=== PATIENT | female | born 1945 | race Caucasian/White ===

== ENCOUNTER → 2016-04-07 | Outpatient (CLI) | payer MEDICARE, OTHER ==
[2016-04-07 13:10] LABS: BASOPHIL # 0.1 K/uL (0.0-0.2); BASOPHIL % 1.2 %; EOSINOPHIL # 0.2 K/uL (0.0-0.5); EOSINOPHIL % 2.6 %; HEMATOCRIT 37.5 % (33.0-46.0); HEMOGLOBIN 12.1 g/dL (10.0-15.0); IMMATURE GRANULOCYTE % 0.3 %; LYMPHOCYTE # 0.9 K/uL (0.8-4.0); LYMPHOCYTE % 15.5 %; MCH 29.1 pg (27.0-34.0); MCHC 32.3 gm/dL (32.0-36.5); MCV 90.1 fl (83.0-98.0); MONOCYTE # 0.3 K/uL (0.0-1.0); MONOCYTE % 5.6 %; MPV 10.6 fl (9.4-12.4); NEUTROPHIL # (ANC) 4.3 K/uL (1.8-7.8); NEUTROPHIL % 74.8 %; NRBC % 0 /100WBC (0-0.00); PLATELET COUNT 345 K/uL (150-450); RBC 4.16 M/uL (3.50-5.50); RDW-CV 15.1 % (11.9-14.6); WBC 5.8 K/uL (4.0-11.0)
[2016-04-07 13:25] LABS: ALBUMIN 2.7 gm/dL (3.5-5.0); ALK PHOS 131 IU/L (33-138); ALT 18 IU/L (12-78); BLOOD UREA NITROGEN 16 mg/dL (6-24); CALCIUM 8.3 mg/dL (8.5-10.5); CHLORIDE 107 mMol/L (96-110); CO2 22 mMol/L (22-32); CREATININE 0.7 mg/dL (0.5-1.1); ESTIMATED GFR (MDRD EQUATION) > 60; PHOSPHORUS 3.6 mg/dL (2.5-4.9); SODIUM 139 mMol/L (135-145)
[2016-04-07 13:28] LABS: ANION GAP 14.3 (10.0-19.0); AST 24 IU/L (10-40); MAGNESIUM 1.9 mg/dL (1.3-2.6); POTASSIUM 4.3 mMol/L (3.7-5.1); TOTAL BILIRUBIN 0.1 mg/dL (0.0-1.5)
== END | disposition disaster alternative care site (69) ==
LOC: LHHCN 13:04
PROVIDERS: Internal Medicine Gastroenterology
DX: Z45.2 Encounter for adjustment and management of vascular access device (principal); N18.3 Chronic kidney disease, stage 3 (moderate); F50.01 Anorexia nervosa, restricting type

== ENCOUNTER → 2016-04-13 | Outpatient (CLI) | payer MEDICARE, OTHER ==
[2016-04-13 12:36] LABS: BASOPHIL # 0.1 K/uL (0.0-0.2); BASOPHIL % 1.6 %; EOSINOPHIL # 0.2 K/uL (0.0-0.5); EOSINOPHIL % 3.5 %; HEMATOCRIT 35.8 % (33.0-46.0); HEMOGLOBIN 11.3 g/dL (10.0-15.0); IMMATURE GRANULOCYTE % 0.5 %; LYMPHOCYTE # 1.3 K/uL (0.8-4.0); LYMPHOCYTE % 20.7 %; MCH 28.6 pg (27.0-34.0); MCHC 31.6 gm/dL (32.0-36.5); MCV 90.6 fl (83.0-98.0); MONOCYTE # 0.3 K/uL (0.0-1.0); MONOCYTE % 5.1 %; MPV 10.7 fl (9.4-12.4); NEUTROPHIL # (ANC) 4.4 K/uL (1.8-7.8); NEUTROPHIL % 68.6 %; NRBC % 0 /100WBC (0-0.00); RBC 3.95 M/uL (3.50-5.50); RDW-CV 15.5 % (11.9-14.6); WBC 6.3 K/uL (4.0-11.0)
[2016-04-13 12:37] LABS: PLATELET COUNT 420 K/uL (150-450)
[2016-04-13 12:49] LABS: ALBUMIN 2.8 gm/dL (3.5-5.0); ALK PHOS 107 IU/L (33-138); ALT 16 IU/L (12-78); ANION GAP 12.5 (10.0-19.0); AST 19 IU/L (10-40); BLOOD UREA NITROGEN 22 mg/dL (6-24); CALCIUM 8.5 mg/dL (8.5-10.5); CHLORIDE 109 mMol/L (96-110); CO2 25 mMol/L (22-32); CREATININE 0.8 mg/dL (0.5-1.1); ESTIMATED GFR (MDRD EQUATION) > 60; MAGNESIUM 1.9 mg/dL (1.3-2.6); PHOSPHORUS 4.3 mg/dL (2.5-4.9); POTASSIUM 4.5 mMol/L (3.7-5.1); SODIUM 142 mMol/L (135-145); TOTAL PROTEIN 5.9 g/dL (6.0-8.4)
[2016-04-13 12:50] LABS: TOTAL BILIRUBIN 0.2 mg/dL (0.0-1.5)
== END | disposition disaster alternative care site (69) ==
LOC: LHHCN 12:23
PROVIDERS: Internal Medicine Gastroenterology
DX: Z45.2 Encounter for adjustment and management of vascular access device (principal); N18.3 Chronic kidney disease, stage 3 (moderate); F50.01 Anorexia nervosa, restricting type

== ENCOUNTER → 2016-04-21 | Outpatient (CLI) | payer MEDICARE, OTHER ==
[2016-04-21 13:05] LABS: BASOPHIL # 0.1 K/uL (0.0-0.2); BASOPHIL % 0.4 %; EOSINOPHIL # 0.1 K/uL (0.0-0.5); HEMATOCRIT 33.7 % (33.0-46.0); HEMOGLOBIN 10.7 g/dL (10.0-15.0); IMMATURE GRANULOCYTE # 0.1 K/uL (0.0-0.3); IMMATURE GRANULOCYTE % 0.6 %; LYMPHOCYTE # 0.5 K/uL (0.8-4.0); LYMPHOCYTE % 4.3 %; MCHC 31.8 gm/dL (32.0-36.5); MCV 88.2 fl (83.0-98.0); MONOCYTE # 0.6 K/uL (0.0-1.0); MONOCYTE % 4.6 %; MPV 10.9 fl (9.4-12.4); NEUTROPHIL # (ANC) 11.2 K/uL (1.8-7.8); NEUTROPHIL % 89.1 %; NRBC % 0 /100WBC (0-0.00); RBC 3.82 M/uL (3.50-5.50); RDW-CV 15.7 % (11.9-14.6); WBC 12.5 K/uL (4.0-11.0)
[2016-04-21 13:09] LABS: PLATELET COUNT 334 K/uL (150-450)
[2016-04-21 13:18] LABS: ALBUMIN 2.5 gm/dL (3.5-5.0); ALK PHOS 109 IU/L (33-138); ALT 19 IU/L (12-78); ANION GAP 14.7 (10.0-19.0); AST 22 IU/L (10-40); BLOOD UREA NITROGEN 23 mg/dL (6-24); CALCIUM 8.2 mg/dL (8.5-10.5); CHLORIDE 108 mMol/L (96-110); CO2 25 mMol/L (22-32); CREATININE 0.7 mg/dL (0.5-1.1); ESTIMATED GFR (MDRD EQUATION) > 60; PHOSPHORUS 3.9 mg/dL (2.5-4.9); POTASSIUM 4.7 mMol/L (3.7-5.1); SODIUM 143 mMol/L (135-145); TOTAL BILIRUBIN 0.2 mg/dL (0.0-1.5); TOTAL PROTEIN 5.7 g/dL (6.0-8.4)
== END | disposition disaster alternative care site (69) ==
LOC: LHHCN 13:01
PROVIDERS: Internal Medicine Gastroenterology
DX: Z45.2 Encounter for adjustment and management of vascular access device (principal); F50.01 Anorexia nervosa, restricting type; N18.3 Chronic kidney disease, stage 3 (moderate)

== ENCOUNTER → 2016-04-28 | Outpatient (CLI) | payer MEDICARE, OTHER ==
[2016-04-28 13:02] LABS: HEMATOCRIT 32.9 % (33.0-46.0); HEMOGLOBIN 10.4 g/dL (10.0-15.0); MCH 28.2 pg (27.0-34.0); MCHC 31.6 gm/dL (32.0-36.5); MCV 89.2 fl (83.0-98.0); RBC 3.69 M/uL (3.50-5.50); RDW-CV 15.7 % (11.9-14.6)
[2016-04-28 13:03] LABS: PLATELET COUNT 461 K/uL (150-450); WBC 29.5 K/uL (4.0-11.0)
[2016-04-28 13:12] LABS: ALBUMIN 2.6 gm/dL (3.5-5.0); ALK PHOS 110 IU/L (33-138); ALT 27 IU/L (12-78); ANION GAP 15.1 (10.0-19.0); AST 36 IU/L (10-40); BLOOD UREA NITROGEN 25 mg/dL (6-24); CALCIUM 8.5 mg/dL (8.5-10.5); CHLORIDE 107 mMol/L (96-110); CO2 26 mMol/L (22-32); CREATININE 0.8 mg/dL (0.5-1.1); ESTIMATED GFR (MDRD EQUATION) > 60; MAGNESIUM 2.1 mg/dL (1.3-2.6); PHOSPHORUS 3.4 mg/dL (2.5-4.9); POTASSIUM 4.1 mMol/L (3.7-5.1); SODIUM 144 mMol/L (135-145); TOTAL BILIRUBIN 0.2 mg/dL (0.0-1.5); TOTAL PROTEIN 6.4 g/dL (6.0-8.4)
[2016-04-28 13:26] LABS: BANDED NEUTROPHIL # 3.2 K/uL (0.0-0.1); BANDED NEUTROPHILS % 11 %; LYMPHOCYTE # 0.6 K/uL (0.8-4.0); LYMPHOCYTE % 2 %; MONOCYTE # 0.9 K/uL (0.0-1.0); SEGMENTED NEUTROPHIL # 24.8 K/uL (1.8-7.8); SEGMENTED NEUTROPHIL % 84 %
== END | disposition disaster alternative care site (69) ==
LOC: LHHCN 12:52
PROVIDERS: Internal Medicine Gastroenterology
DX: Z45.2 Encounter for adjustment and management of vascular access device (principal); F50.01 Anorexia nervosa, restricting type; N18.3 Chronic kidney disease, stage 3 (moderate)

== ENCOUNTER 2016-05-16 21:49 | Emergency (ER) | payer MEDICARE, OTHER ==
--- NOTE | ~2016-05-16 | ER ---
PATIENT'S NAME: RICCO RAMIREZ [facility] AGE: 70 Y [address] ROOM: [place] [address] LOCATION: [facility] ADMIT DATE: 05/16/2016 ER/Outpatient Report DISCHARGE DATE: FAMILY PHYSICIAN: Pat Jj MD ATTENDING PHYSICIAN: Ritchie Chakraborty Admission date and time are documented on the medical record. I saw the patient at 2200 hours. CHIEF COMPLAINT: Difficulty breathing, worsening over the past 2 days. HISTORY OF PRESENT ILLNESS: This patient is a 70-year-old female who comes in with shortness of breath that has been increasing over the past 2 days. She had pneumonia about 2 weeks ago. No chest pain. Nonproductive cough. She has had an undocumented fever at home. No abdominal pain, nausea, vomiting, diarrhea, or urinary frequency, urgency, or dysuria. No lightheadedness, dizziness, syncope, or near syncope. No headache, eyes, ears, nose, throat, neck, or spine pain. No fall or trauma. No joint or muscle swelling, redness, or pain. No skin eruptions or rash. History of headaches. No other neuro changes. No history of endocrine problems or psych issues. HOME MEDICATIONS: See attached medication list. ALLERGIES: NONE. SOCIAL HISTORY: Nonsmoker, nondrinker. SIGNIFICANT PAST MEDICAL HISTORY: Remote tobacco abuse, headaches, polyarteritis nodosa, stomach cancer, pneumonia, restless legs syndrome, peptic ulcer disease, cervical spinal stenosis, anemia, chronic kidney disease, sepsis, and chronic pain syndrome. OPERATIONS: Stomach resection, G-tube placement, tonsillectomy, and anterior cervical diskectomy. REVIEW OF SYSTEMS: All systems reviewed by me are negative with the exception of those discussed in the history of present illness. PATIENT'S NAME: RICCO RAMIREZ [facility] AGE: 70 Y [address] ROOM: [place] [address] LOCATION: [facility] ADMIT DATE: 05/16/2016 ER/Outpatient Report DISCHARGE DATE: FAMILY PHYSICIAN: Pat Jj MD ATTENDING PHYSICIAN: Ritchie Chakraborty PHYSICAL EXAMINATION: VITAL SIGNS: Temperature 96.6, tympanic, pulse 100, respirations 16, blood pressure 123/72, and O2 sat on room air is 95%. HEAD: Normocephalic. EYES, EARS, NOSE, THROAT: Clear. Mucous membranes moist. NECK: Negative. LUNGS: Decreased breath sounds diffusely. No rales, rhonchi, or wheezes. HEART: Regular. Pulses are palpable. ABDOMEN: Soft, nondistended, nontender. Good bowel tones. No organomegaly or abnormal mass palpable. No CVA tenderness. EXTREMITIES: Intact. NEUROVASCULAR: Intact. SKIN: Clear. No skin eruptions or rash. IMAGING DATA: Chest x-ray showed no acute infiltrate. We will review x-ray with the radiologist. LABORATORY DATA: White count is 28,500, 85 segs, 8 bands, 3 lymphs, 2 monos, 2 eos, hemoglobin is 8.8, hematocrit 27.5, and platelet count is 567,000. PTT was 28, pro-time is 10 with an INR 0.95. D-dimer was elevated 1.16. CMS was normal except for an elevated glucose 101. CPK was 38. Wnttt-xm-ltnx cardiac enzymes were normal. CRP was 1.35. Thyroid tests were normal. Pro-BNP was 398. Procalcitonin was less than 0.05. Lactate was 1.4. Arterial blood gases on room air showed a pH of 7.45, pCO2 of 46, pO2 of 67 with an O2 sat of 94%. EMERGENCY DEPARTMENT COURSE: I did start the patient on IV normal saline, fluids, gave her Levaquin 750 mg IV in the emergency room and Solu-Medrol 125 mg IV in the emergency room. In view of her shortness of breath and elevated D-dimer, we did do a CT scan of the chest with PE protocol. CT scan of the chest showed no evidence of pulmonary embolism. There was no infiltrate. There was changes of emphysema and scarring. Multiple ill-defined airspace opacities and interstitial thickening in the lungs. CT scan was read by Radiology, see dictated transcribed report. IMPRESSION: 1. Exacerbation of chronic obstructive pulmonary disease, emphysema with shortness of breath, leukocytosis with left shift, cough, and questionable fever. 2. History of remote tobacco abuse. 3. History of polyarteritis nodosa. 4. History of stomach cancer, status post stomach resection. 5. Anemia. PATIENT'S NAME: RICCO RAMIREZ [facility] AGE: 70 Y [address] ROOM: [place], [place] [address] LOCATION: ED ADMIT DATE: 05/16/2016 ER/Outpatient Report DISCHARGE DATE: FAMILY PHYSICIAN: Pat Jj MD ATTENDING PHYSICIAN: Ritchie Chakraborty 6. Thrombocytosis. PLAN: The patient was given IV Levaquin, IV Solu-Medrol, and IV normal saline fluids here in the emergency department. Dismissed home. Observation. Activity as tolerated. Continue present home medications and care. Levaquin 500 mg once a day #7. Prednisone 20 mg b.i.d. for 6 days. Fluids, diet as tolerated. Follow up with personal physician as scheduled on this Wednesday or . Discussion ensued with the patient concerning my findings and recommendations, she understands. MD HARSH HAHN/modl /[id number] d: 05/17/16 0122 t: 05/17/16 1814, OUTPATIENT REPORT
[2016-05-16 22:18] LABS: LACTATE 1.4 mEq/L (0.50-1.60); PCO2 46 mmHg (35-45); PO2 67 mmHg (80-90)
[2016-05-16 22:43] LABS: HEMATOCRIT 27.5 % (33.0-46.0); HEMOGLOBIN 8.8 g/dL (10.0-15.0); MCH 28.1 pg (27.0-34.0); MCV 87.9 fl (83.0-98.0); MPV 9.4 fl (9.4-12.4); RBC 3.13 M/uL (3.50-5.50); RDW-CV 17.2 % (11.9-14.6)
[2016-05-16 22:45] LABS: PLATELET COUNT 567 K/uL (150-450); WBC 28.5 K/uL (4.0-11.0)
[2016-05-16 23:01] LABS: ALBUMIN 2.7 gm/dL (3.5-5.0); ALK PHOS 95 IU/L (33-138); ALT 18 IU/L (12-78); ANION GAP 11.4 (10.0-19.0); AST 17 IU/L (10-40); BLOOD UREA NITROGEN 23 mg/dL (6-24); CALCIUM 8.6 mg/dL (8.5-10.5); CHLORIDE 104 mMol/L (96-110); CO2 29 mMol/L (22-32); CPK 38 IU/L (21-215); CREATININE 0.9 mg/dL (0.5-1.1); ESTIMATED GFR (MDRD EQUATION) > 60; INR - (THERAPEUTIC) 0.95 (0.92-1.07); POTASSIUM 4.4 mMol/L (3.7-5.1); PTT 28 SECONDS (25-32); SODIUM 140 mMol/L (135-145); TOTAL PROTEIN 6.2 g/dL (6.0-8.4)
[2016-05-16 23:04] LABS: TOTAL BILIRUBIN 0.3 mg/dL (0.0-1.5)
[2016-05-16 23:18] LABS: ABSOLUTE NEUTROPHIL CT (ANC) 26.5 K/uL (1.8-7.8); BANDED NEUTROPHIL # 2.3 K/uL (0.0-0.1); BANDED NEUTROPHILS % 8 %; LYMPHOCYTE # 0.9 K/uL (0.8-4.0); LYMPHOCYTE % 3 %; MONOCYTE # 0.6 K/uL (0.0-1.0); SEGMENTED NEUTROPHIL # 24.2 K/uL (1.8-7.8); SEGMENTED NEUTROPHIL % 85 %
== END 2016-05-17 02:27 | disposition disaster alternative care site (69) ==
LOC: GMED 21:49
PROVIDERS: Emergency Medicine
DX: J44.1 Chronic obstructive pulmonary disease with (acute) exacerbation (principal); D64.9 Anemia, unspecified; D47.3 Essential (hemorrhagic) thrombocythemia; N18.9 Chronic kidney disease, unspecified; Z90.89 Acquired absence of other organs
CPT/HCPCS: J1956; J2930; J7030; Q9967

== ENCOUNTER 2016-09-29 14:31 | Emergency (ER) | payer MEDICARE, OTHER ==
--- NOTE | ~2016-09-29 | ER ---
PATIENT'S NAME: RICCO RAMIREZ [facility] AGE: 71 Y [address] ROOM: [place] [address] LOCATION: [facility] ADMIT DATE: 09/29/2016 ER/Outpatient Report DISCHARGE DATE: 09/29/2016 FAMILY PHYSICIAN: Pat Jj MD ATTENDING PHYSICIAN: Brea Ram Time of Arrival: 1431. Time of Evaluation: 1450. IDENTIFICATION: A 71-year-old female. CHIEF COMPLAINT: Issues with J-tube. HISTORY OF PRESENT ILLNESS: The patient is a 71-year-old female who had a J-tube placed per Dr. Kevin, interventional radiologist, at [facility] just over 1 year ago. This was placed for failure to thrive and poor weight gain and malnutrition. She has a history of adenocarcinoma status post resection as well as polyarteritis nodosa. She has not been using her tube for the last several months; however, she said "they" do not want to take it out in case she needs it. However, she does have a followup appointment scheduled with her exhaust and muffler fitter in [place] in October. She feels like the length of her tube has been lengthening gradually over time and that it is "working its way out." She has had some redness around the site and some purulent drainage the last couple of days. She has no fever or chills. She has had some nausea yesterday, but no vomiting. She had diarrhea yesterday. She has no other problems or concerns. No weight gain or weight loss. ALLERGIES: NO KNOWN DRUG ALLERGIES. CURRENT MEDICATIONS: 1. Synthroid 50 mcg daily. 2. OxyContin 20 mg b.i.d. 3. Oxycodone q.6 hours p.r.n. 4. Mirtazapine 30 mg daily. 5. Ropinirole 2 mg daily. 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 ROOM: [place] [address] LOCATION: [facility] ADMIT DATE: 09/29/2016 ER/Outpatient Report DISCHARGE DATE: 09/29/2016 FAMILY PHYSICIAN: Pat Jj MD ATTENDING PHYSICIAN: Brea Ram. PRIOR SURGERIES: Antrectomy with Billroth I anastomosis secondary to gastric cancer, tonsillectomy, anterior cervical diskectomy, jejunostomy tube placed 1 year ago. SOCIAL HISTORY: The patient lives here in [place]. Dr. Jj is her primary care physician. She is retired. Tobacco use, denies currently. She has three children. She is . Alcohol use, denies. Drug use, denies. REVIEW OF SYSTEMS: All systems reviewed and negative other than what is noted in the HPI. PHYSICAL EXAMINATION: VITAL SIGNS: Weight 35.9 kg. Blood pressure 112/62, pulse 91, respirations 20, temperature 98.9, saturation 97% on room air. GENERAL: A 71-year-old female, in no acute distress. She is thin and cachectic in appearance. HEENT: Head: Normocephalic, atraumatic. Ears: TMs not visualized. Eyes: Pupils equal and reactive to light and accommodation. Extraocular movements intact. Nose: Mucosa pink. No lesions. Mouth: No lesions. Pharynx benign. NECK: Supple. No lymphadenopathy. LUNGS: Clear to auscultation. HEART: Regular rate and rhythm. ABDOMEN: Bowel sounds present. Soft, nondistended, nontender. SKIN: [place], warm, and dry. The patient has erythema around her jejunostomy tube and some purulent drainage which was cultured. She is afebrile. LABORATORY DATA AND X-RAYS: Sodium 141, potassium 3.6, chloride 111, CO2 of 24, BUN 14, creatinine 0.9. Blood sugar 93. Total protein low at 5.8, albumin low at 2.1. Liver enzymes normal. Procalcitonin less than 0.05. Lactate 1.1. Hemoglobin 11.1, hematocrit 33.8, platelets 386, white count 9.5 with a normal differential. IMPRESSION: Infected J-tube with small amount of cellulitis and purulent drainage from around the site. The patient is afebrile with a normal white count. She will be placed on Keflex 250 mg q.i.d. x7 days, and she is to follow up with her scheduled exhaust and muffler fitter in [place] or the surgeon or interventional radiologist who placed the jejunostomy tube as she would like to have this removed. She will call and get an appointment there for later this week. She will follow up sooner if any problems or concerns, specifically fever, chills, PATIENT'S NAME: RICCO RAMIREZ [facility] AGE: 71 Y [address] ROOM: [place] [address] LOCATION: [facility] ADMIT DATE: 09/29/2016 ER/Outpatient Report DISCHARGE DATE: 09/29/2016 FAMILY PHYSICIAN: Pat Jj MD ATTENDING PHYSICIAN: Brea Ram increasing redness, problems, or concerns. The patient understands and agrees, and all questions have been answered. BREA RAM MD CAR/modl /[id number] d: 09/29/168 t: 10/07/162030, OUTPATIENT REPORT
[2016-09-29 15:26] LABS: BASOPHIL # 0.1 K/uL (0.0-0.2); BASOPHIL % 0.7 %; EOSINOPHIL # 0.7 K/uL (0.0-0.5); EOSINOPHIL % 7.6 %; HEMATOCRIT 33.8 % (33.0-46.0); HEMOGLOBIN 11.1 g/dL (10.0-15.0); IMMATURE GRANULOCYTE % 0.3 %; LYMPHOCYTE % 10.3 %; MCH 30.2 pg (27.0-34.0); MCHC 32.8 gm/dL (32.0-36.5); MCV 92.1 fl (83.0-98.0); MONOCYTE # 1.4 K/uL (0.0-1.0); MONOCYTE % 14.8 %; MPV 9.9 fl (9.4-12.4); NEUTROPHIL # (ANC) 6.3 K/uL (1.8-7.8); NEUTROPHIL % 66.3 %; NRBC % 0 /100WBC (0-0.00); PLATELET COUNT 386 K/uL (150-450); RBC 3.67 M/uL (3.50-5.50); RDW-CV 17.2 % (11.9-14.6); WBC 9.5 K/uL (4.0-11.0)
[2016-09-29 15:44] LABS: ALBUMIN 2.1 gm/dL (3.5-5.0); ANION GAP 9.6 (10.0-19.0); CALCIUM 8.1 mg/dL (8.5-10.5); CREATININE 0.9 mg/dL (0.5-1.1); POTASSIUM 3.6 mMol/L (3.7-5.1); TOTAL BILIRUBIN 0.2 mg/dL (0.0-1.5); TOTAL PROTEIN 5.8 g/dL (6.0-8.4)
== END 2016-09-29 16:29 | disposition disaster alternative care site (69) ==
LOC: GMED 14:31
PROVIDERS: Family Medicine
DX: K94.12 Enterostomy infection (principal); L03.818 Cellulitis of other sites; N18.9 Chronic kidney disease, unspecified; M30.0 Polyarteritis nodosa; G43.909 Migraine, unspecified, not intractable, without status migrainosus; Z90.49 Acquired absence of other specified parts of digestive tract; Z90.89 Acquired absence of other organs; Z87.11 Personal history of peptic ulcer disease; Z79.899 Other long term (current) drug therapy

== ENCOUNTER 2016-10-05 06:36 | Emergency (ER) | payer MEDICARE, OTHER ==
--- NOTE | ~2016-10-05 | ER ---
PATIENT'S NAME: RICCO RAMIREZ [facility] AGE: 71 Y [address] ROOM: [place] [address] LOCATION: [facility] ADMIT DATE: 10/05/2016 ER/Outpatient Report DISCHARGE DATE: 10/05/2016 FAMILY PHYSICIAN: Pat Jj MD ATTENDING PHYSICIAN: Brea Ram Time of Arrival: 0636 hours. Time of Evaluation/Seen: 0710. IDENTIFICATION: A 71-year-old female. CHIEF COMPLAINT: "J-tube came out." HISTORY OF PRESENT ILLNESS: The patient is a 71-year-old female who was just seen here on September 29 with J-tube problems. Please refer to that note as well. She was supposed to follow up with her tool and gauge inspector in [place] and she has not yet done so but has an appointment this Wednesday to have the J-tube removed. She had this tube placed per Dr. Kevin, interventional radiologist at [facility] just over one year ago. She has a history of failure to thrive and poor weight gain with malnutrition, history of adenocarcinoma of the stomach status post resection as well as polyarteritis nodosa. She has not used her tube for four months and she would like to have it removed. She has been on some Keflex for some cellulitis. She continues to have some redness and a little bit of drainage, but this morning, the tube was completely out. No fever or chills. No nausea or vomiting. Her weight is 80 pounds which is up from 61 at the time it was placed. PAST MEDICAL HISTORY: ALLERGIES: NO KNOWN DRUG ALLERGIES. CURRENT MEDICATIONS: 1. Synthroid 50 mcg daily. 2. OxyContin 20 mg b.i.d. 3. Oxycodone 5/325 q.4 hours as needed. 4. Mirtazapine 30 mg at bedtime. 5. Ropinirole 2 mg daily. MEDICAL PROBLEMS: 1. Polyarteritis nodosa. 2. Adenocarcinoma of the stomach status post resection. PATIENT'S NAME: RICCO RAMIREZ [facility] AGE: 71 Y [address] ROOM: [place] [address] LOCATION: ED ADMIT DATE: 10/05/2016 ER/Outpatient Report DISCHARGE DATE: 10/05/2016 FAMILY PHYSICIAN: Pat Jj MD ATTENDING PHYSICIAN: Brea Ram 3. Pneumonia. 4. Peptic ulcer disease. 5. Cervical spine stenosis. 6. Failure to thrive. 7. Malnutrition. 8. Microcytic anemia. 9. Migraine headaches. 10. Chronic kidney disease. 11. Septic shock secondary to Streptococcus pneumoniae in February of 2014. 12. Chronic pain syndrome. PAST SURGICAL HISTORY: Prior Surgeries: 1. Antrectomy with Billroth I anastomosis secondary to gastric cancer. 2. Tonsillectomy. 3. Anterior cervical diskectomy. 4. Jejunostomy tube placed 1 year ago. SOCIAL HISTORY: The patient lives here in [place]. Dr. Jj is her primary care physician. She is retired. Tobacco use; denies. Currently, she has three children. She is . Alcohol use; denies. Drug use; denies. REVIEW OF SYSTEMS: All systems were reviewed and negative other than what is noted in the HPI. However, just prior to leaving, she said that she has increased lethargy and she falls asleep easily even "standing up." This has been going on for 1 year. She does have hypothyroidism. She is not certain when her last TSH was checked, but she has had Dr. Jj see her every 3 months and she does have some laboratory work done. On 05/16/2016, she had a free T4 of 0.9 and TSH of 2.210 in [facility] records. On September 29, she had a normal CBC. PHYSICAL EXAMINATION: VITAL SIGNS: Weight 36.7 kg. Blood pressure 139/74, pulse 80, respiratory rate 18, temperature 97.4, and sats 94% on room air. GENERAL: A 71-year-old female, in no acute distress. HEENT: Unremarkable. LUNGS: Clear to auscultation. HEART: Regular rate and rhythm. ABDOMEN: Soft, nondistended, and nontender. SKIN: The patient has some erythema surrounding the jejunostomy site. There is no purulent drainage at this time. This was cultured at her last visit on September 29 that was positive for Streptococcus pyogenes group A and E. coli. The E. coli was sensitive to cephalosporins, and she has been taking the cephalexin. PATIENT'S NAME: RICCO RAMIREZ [facility] AGE: 71 Y [address] ROOM: [place], [place] [address] LOCATION: [facility] ADMIT DATE: 10/05/2016 ER/Outpatient Report DISCHARGE DATE: 10/05/2016 FAMILY PHYSICIAN: Pat Jj MD ATTENDING PHYSICIAN: Brea Ram EXTREMITIES: No edema. IMPRESSION AND PLAN: Jejunostomy tube removal that had fallen out. I did talk with our tool and gauge inspector and surgeon as we are awaiting for her tool and gauge inspector, Dr. Morse to call back. She does 100% want to have this tube out. She will keep the wound covered. Continue the Keflex, and I did give her an additional three days worth of Keflex, and she will follow up as scheduled on Wednesday. She will follow up sooner if any problems or concerns. Dr. Morse did call after she was discharged and I updated him with this information. BREA RAM MD CAR/modl /[id number] d: 10/05/162107 t: 10/07/162039, OUTPATIENT REPORT
== END 2016-10-05 08:41 | disposition disaster alternative care site (69) ==
LOC: GMED 06:36
DX: K94.23 Gastrostomy malfunction (principal); M30.0 Polyarteritis nodosa; D50.9 Iron deficiency anemia, unspecified; N18.9 Chronic kidney disease, unspecified; R62.7 Adult failure to thrive; Z85.028 Personal history of other malignant neoplasm of stomach; Z87.01 Personal history of pneumonia (recurrent); Z79.891 Long term (current) use of opiate analgesic; Z79.899 Other long term (current) drug therapy; Z90.89 Acquired absence of other organs; Z98.890 Other specified postprocedural states